=== PATIENT | female | born 1995 | race Caucasian/White ===

== ENCOUNTER 2017-09-20 02:06 | Emergency (ER) | END 2017-09-20 05:22 | disposition home or self-care (01) ==

== ENCOUNTER 2018-06-15 17:47 | Inpatient (IN) | END 2018-06-20 13:27 | disposition home or self-care (01) | DRG 339 ==

== ENCOUNTER 2018-12-18 10:54 | Emergency (ER) | payer OTHER ==
[~2018-12-18] VITALS: Ht 152.4 cm; Wt 77.1 kg
[~2018-12-18 10:54] MED LIST: CEFU250T64 PO; HYDR-3601 PO; METR500T PO; PHEN-716 PO
[2018-12-18 10:59] VITALS: BP 127/62; PULSE 75; RESP 18; Ht 152.4 cm; Wt 77.1 kg
[2018-12-18] MEDS ORDERED: KETOROLAC 30 MG INJ IV STA (12:08)
[2018-12-18] MEDS ORDERED: ONDANSETRON 4 MG INJ IV STA (12:08)
[2018-12-18] MEDS ORDERED: SOD CHLORIDE 0.9% 1,000 ML IV STA (12:08)
[2018-12-18] MEDS ORDERED: ACET325T33 PO (15:31)
[2018-12-18] MEDS ORDERED: FAMO-96 PO (15:31)
[2018-12-18] MEDS ORDERED: FER325 PO (15:31)
[2018-12-18] MEDS ORDERED: DOCU-144 PO (15:31)
--- NOTE | 2018-12-19 06:53 | ERD ---
ER Documentation Chief Complaint Chief Complaint epigastric pain and heavy vaginal bleeding since tuesday HPI 23-year-old female presented with epigastric pain and vaginal bleeding. She has had some epigastric pain for the last 3 days. She states it comes and goes and she has not taken medications for symptoms. Patient is also having vaginal bleeding that started yesterday and she has been passing clots. She denies any back pain. Denies fevers. Has not had have a heavy period like this before. Denies medical problems. Allergy to ciprofloxacin. Social history denies. Surgical history appendectomy ROS All systems reviewed and are negative except as per history of present illness. Medications Home Meds Active Scripts Docusate Sodium* (Colace*) 100 Mg Capsule, 100 MG PO TID, #30 CAP Prov:ARNULFO REGALADO PA-C 12/18/18 Ferrous Sulfate* (Ferrous Sulfate*) 325 Mg Tabec, 325 MG PO DAILY, #30 TAB Prov:ARNULFO REGALADO PA-C 12/18/18 Acetaminophen* (Tylenol*) 325 Mg Tablet, 2 TAB PO Q6 PRN for PAIN AND OR ELEVA VENKAT TEMP, #20 TAB Prov:ARNULFO REGALADO PA-C 12/18/18 Famotidine* (Pepcid*) 20 Mg Tablet, 20 MG PO BID for 4 Days, #30 TAB Prov:ARNULFO REGALADO PA-C 12/18/18 Phenazopyridine Hcl* (Phenazopyridine Hcl*) 100 Mg Tablet, 100 MG PO TID for 2 Days, #6 TAB Prov:PRECIOUS SINCLAIR MD 06/20/18 Hydrocodone Bit-Acetaminophen (Hydrocodone Bit-APAP) 5-325MG Tablet, 1 TAB PO Q6H PRN for PAIN LEVEL 4-6 for 5 Days, #15 TAB Prov:PRECIOUS SINCLAIR MD 06/20/18 Metronidazole* (Flagyl*) 500 Mg Tablet, 500 MG PO Q8 for 4 Days, #10 TAB next dose tonight (06/20) Prov:PRECIOUS SINCLAIR MD 06/20/18 Cefuroxime Axetil* (Cefuroxime Axetil*) 250 Mg Tablet, 500 MG PO BID for 4 Days, #7 TAB next dose tonight (06/20) Prov:PRECIOUS SINCLAIR MD 06/20/18 Allergies Allergies: Coded Allergies: ciprofloxacin (Verified Allergy, Intermediate, 06/17/18) RASH No Known Drug Allergies (Verified Allergy, Mild, 06/15/18) PMhx/Soc History of Surgery: No Anesthesia Reaction: No Hx Neurological Disorder: No Hx Respiratory Disorders: Yes Hx Cardiac Disorders: No Hx Psychiatric Problems: No Hx Miscellaneous Medical Probl: No Hx Alcohol Use: No Hx Substance Use: No Hx Tobacco Use: No Smoking Status: Never smoker FmHx Family History: No diabetes, No coronary disease, No other Physical Exam Vitals Vital Signs Date Temp Pulse Resp B/P (MAP) Pulse Ox O2 O2 Flow FiO2 Time Delivery Rate 12/18/18 97.9 75 18 127/62 98 10:59 (83) Physical Exam GENERAL: The patient is well-appearing, well-nourished, in no acute distress HEENT: Atraumatic. Conjunctivae are pink. Pupils equal, round, and reactive to light. There is no scleral icterus. Tympanic membranes clear bilaterally. Oropharynx clear. No nystagmus or photophobia. CHEST: Clear to auscultation bilaterally. There are no rales, wheezes or rhonchi. HEART: Regular rate and rhythm. No murmurs, clicks, rubs or gallops. ABDOMEN: Normal active bowel sounds. No distention. No organomegaly. Tender to palpation in the epigastric region and mild tenderness in the pelvic region. Result Diagram: 12/18/18 1310 12/18/18 1310 Results 24 hrs Laboratory Tests Test 12/18/18 13:10 12/18/18 14:49 White Blood Count 5.7 10^3/ul Red Blood Count 5.06 10^6/ul Hemoglobin 13.3 g/dl Hematocrit 42.0 % Mean Corpuscular Volume 83.0 fl Mean Corpuscular Hemoglobin 26.3 pg Mean Corpuscular Hemoglobin Concent 31.7 g/dl Red Cell Distribution Width 13.7 % Platelet Count 180 10^3/UL Mean Platelet Volume 10.4 fl Immature Granulocytes % 0.400 % Neutrophils % 61.1 % Lymphocytes % 32.5 % Monocytes % 5.1 % Eosinophils % 0.7 % Basophils % 0.2 % Nucleated Red Blood Cells % 0.0 /100WBC Immature Granulocytes # 0.020 10^3/ul Neutrophils # 3.5 10^3/ul Lymphocytes # 1.8 10^3/ul Monocytes # 0.3 10^3/ul Eosinophils # 0.0 10^3/ul Basophils # 0.0 10^3/ul Nucleated Red Blood Cells # 0.0 10^3/ul Urine Color RED Urine Clarity SLIGHTLY CLOUDY Urine pH 7.0 Urine Specific [place] 1.009 Urine Ketones NEGATIVE mg/dL Urine Nitrite NEGATIVE mg/dL Urine Bilirubin NEGATIVE mg/dL Urine Urobilinogen NEGATIVE mg/dL Urine Leukocyte Esterase TRACE Ramonita/ul Urine Microscopic RBC > 182 /HPF Urine Microscopic WBC 12 /HPF Urine Mucus FEW /HPF Urine Hemoglobin 3+ mg/dL Urine Glucose NEGATIVE mg/dL Urine Total Protein NEGATIVE mg/dl Sodium Level 141 mmol/L Potassium Level 4.2 mmol/L Chloride Level 105 mmol/L Carbon Dioxide Level 25 mmol/L Anion Gap 11 Blood Urea Nitrogen 9 mg/dl Creatinine 0.52 mg/dl Est Glomerular Filtrat Rate mL/min > 60 mL/min Glucose Level 84 mg/dl Calcium Level 9.3 mg/dl Total Bilirubin 0.3 mg/dl Direct Bilirubin 0.00 mg/dl Indirect Bilirubin 0.3 mg/dl Aspartate Amino Transf (AST/SGOT) 56 IU/L Alanine Aminotransferase (ALT/SGPT) 122 IU/L Alkaline Phosphatase 72 IU/L Total Protein 7.5 g/dl Albumin 4.3 g/dl Globulin 3.20 g/dl Albumin/Globulin Ratio 1.34 Lipase 69 U/L POC Beta HCG, Qualitative NEGATIVE Current Medications Medications Dose Sig/Prashant Start Time Status Last (Trade) Ordered Route PRN Stop Time Admin Dose Reason Admin Sodium 1,000 ml @ Q1H STAT 12/18/18 DC 12/18/18 Chloride 1,000 mls/hr IV 12:08 13:24 12/18/18 13:07 Ondansetron 4 mg ONCE STAT 12/18/18 DC 12/18/18 HCl (Zofran IV 12:08 13:24 Inj) 12/18/18 12:10 Ketorolac 30 mg ONCE STAT 12/18/18 DC 12/18/18 Tromethamine IV 12:08 14:56 (Toradol) 12/18/18 12:10 Procedures/MDM DIAGNOSTIC IMAGING REPORT Patient: SIRI TINOCO : 1995 Age: 23 Sex: F MR #: [id number] DOS: 12/18/18 1208 Ordering MD: SOHAN REGALADO PA-C Location: [facility] Room/Bed: PROCEDURE: US Abdomen. CLINICAL INDICATION: abdominal pain TECHNIQUE: Multiple real-time images were acquired of the patient's right upper quadrant abdomen and retroperitoneum utilizing a high resolution transducer. COMPARISON: 06/15/2018 FINDINGS: The liver demonstrates increased echogenicity. The liver is normal in size and no focal solid lesions are seen. The liver measures 15.7 cm in length. The portal vein is patent with normal direction of flow. No intrahepatic biliary dilatation is seen. No gallstones are identified within the gallbladder. There is no onel cholecystic fluid or gallbladder wall thickening. The common bile duct measures 5 mm in maximal dimension. The visualized portions of the pancreas are unremarkable. The tail of the pancreas is not seen. No free fluid is identified. The right kidney is normal in size, and demonstrate normal echogenicity and cortical thickness. The right kidney measures 11.4 cm in long dimension. There is no evidence of hydronephrosis. There are no kidney stones. RPTAT: AA IMPRESSION: Fatty infiltration of the liver. No evidence of gallstones. DIAGNOSTIC IMAGING REPORT Patient: ISRI TINOCO : 1995 Age: 23 Sex: F [id number] DOS: 12/18/18 1208 Ordering MD: SOHAN REGALADO PA-C Location: E Room/Bed: PROCEDURE: US Pelvis. CLINICAL INDICATION: Vaginal bleeding TECHNIQUE: Multiple sonographic images of the pelvis were obtained utilizing a transabdominal and endovaginal technique. The images were reviewed on a PACS workstation. COMPARISON: US PELVIS 06/15/2018 FINDINGS: The uterus is visualized and measures 8.3 x 4.4 x 4.2 cm. The endometrial echo complex is normal and measures 0.7 cm. The uterus is heterogeneous in appearance. There is no evidence for free fluid. The right ovary has a normal echotexture and measures 3.5 x 2.1 x 1.7 cm . The left ovary has a normal echotexture and measures 3.7 x 1.9 x 2.3 cm. No adnexal masses are noted. Positive flow is noted within both ovaries. IMPRESSION: 1. Heterogeneous appearance of the uterus. Endometrial stripe however, is normal size and appears to be within normal limits. 2.. No evidence of ovarian torsion. Both ovaries are otherwise within normal limits. No gross adnexal masses. No significant free fluid. MDM: 23-year-old female presenting with epigastric pain and pelvic pain. I have low suspicion for choledocholithiasis, cholecystitis or pancreatitis. I have low suspicion for pelvic abnormality or abdominal abnormality. Patient's blood work is stable. Patient is discharged with strict ER precautions and told to follow-up with primary care within 1 to 2 days for close evaluation. Patient is told if symptoms change or worsen to return immediately to the ER. All questions answered at discharge Departure Diagnosis: Primary Impression: Epigastric pain Condition: Stable Patient Instructions: Menorrhagia, Epigastric Pain (Uncertain Cause) Referrals: [facility] (PCP) Additional Instructions: FOLLOW UP WITH YOUR PRIMARY CARE PHYSICIAN TOMORROW.Return to this facility if you are not improving as expected. ARNULFO REGALADO PA-C Dec 19, 2018 06:53
== END 2018-12-18 15:44 | disposition home or self-care (01) ==
LOC: FTE 10:54
DX: R10.13 Epigastric pain (principal)
CPT/HCPCS: 36415; 76705; 76830; 76856; 80053; 81001; 81025; 83690; 85025; 96374; 96375; J1885; J2405; J7030; Z7502